=== PATIENT | male | born 1985 | race Caucasian/White ===

== ENCOUNTER 2022-02-03 08:56 | Emergency (ER) | payer BC ==
[~2022-02-03] VITALS: Ht 182.8 cm; Wt 99.8 kg
[~2022-02-03 08:56] MED LIST: CYCLOBENZAPRINE10 MG PO; Motrin,Rufen800 MG PO; VICODIN 5-3001 EACH PO
[2022-02-03 10:12] LABS: BASO # 0.1 10*3/uL (0.0-0.1); BASO % 0.7 % (0.0-1.0); EOS # 0.1 10*3/uL (0.0-0.4); HEMATOCRIT 39.4 % (42.0-52.0); LYMPH # 1.7 10*3/uL (1.3-4.4); LYMPH % 22.3 % (27.0-41.0); MEAN CELL VOLUME 89.1 fl (80.0-94.0); MEAN CORPUSCULAR HGB 31.9 pg (27.0-31.0); MEAN CORPUSCULAR HGB CONC 35.8 g/dl (33.0-37.0); MEAN PLATELET VOLUME 10.8 fl (9.6-12.3); MONO # 0.5 10*3/uL (0.1-1.0); MONO % 6.4 % (3.0-9.0); NEUT # 5.3 10*3/uL (2.3-7.9); NEUT % 69.2 % (47.0-73.0); PLATELET COUNT AUTOMATED 292 10*3/uL (130-400); RED BLOOD COUNT 4.42 10*6/uL (4.50-5.90); RED CELL DISTRI WIDTH 11.8 % (0-14.5); WHITE BLOOD COUNT 7.7 10*3/uL (4.8-10.8)
[2022-02-03 10:24] LABS: ACT PARTIAL THROMBO TIME 24.1 SECONDS (20.0-32.1)
[2022-02-03 10:29] LABS: ALKALINE PHOSPHATASE 72 U/L (45-117); BUN 36 mg/dl (7-24); CHLORIDE 106 mmol/L (98-107); CREATININE 0.99 mg/dL (0.70-1.30); LIPASE 122 U/L (73-393); POTASSIUM 4.8 mmol/L (3.5-5.1); SGOT/AST 19 IU/L (3-35); SGPT/ALT 40 U/L (12-78); SODIUM 139 mmol/L (136-145); TOTAL PROTEIN 7.1 gm/dL (6.4-8.2)
[2022-02-03] MEDS ORDERED: ONDANSETRON HYDR4 M1 PO (11:34)
== END 2022-02-03 11:43 | disposition home or self-care (01) ==
LOC: ED 08:56
PROVIDERS: Family Medicine
DX: K92.0 Hematemesis (principal); R04.0 Epistaxis